=== PATIENT | male | born 1980 | race Hispanic/Latino ===

== ENCOUNTER 2019-03-01 12:28 | Emergency (ER) | payer SELFPAY ==
[2019-03-01 13:31] LABS: Absolute Lymphocytes (CBC) 2.6 K/uL (0.7-4.9); Basophils % 0.6 % (0-1.3); Hematocrit 40.1 % (39.6-49.0); Lymphocytes % 36.1 % (15.3-44.8); RBC Red Blood Cell Count 4.53 M/uL (4.33-5.43)
[2019-03-01 13:47] LABS: ALT/SGPT 42 U/L (12-78); AST/SGOT 14 U/L (15-37); Alkaline Phosphatase 61 U/L (45-117); BUN Blood Urea Nitrogen 14 mg/dL (7-18); Bicarbonate 29 mmol/L (21-32); Bilirubin Direct 0.1 mg/dL (0-0.2); Bilirubin Total 0.4 mg/dL (0.2-1.0); Glucose Level 90 mg/dL (74-106); Magnesium 2.2 mg/dL (1.8-2.4); Potassium 4.1 mmol/L (3.5-5.1); Protein, Total 7.1 g/dL (6.4-8.2); Sodium Level 140 mmol/L (136-145); Troponin (Emerg Dept Use Only) < 0.02 ng/mL (0.0-0.045)
--- NOTE | 2019-03-01 13:55 | RAD REPORT ---
EXAM DESCRIPTION: RAD - Chest Single View - 03/01/2019 1:44 pm CLINICAL HISTORY: CHEST PAIN Chest pain. COMPARISON: <Comparisons> FINDINGS: Portable technique limits examination quality. The lungs are grossly clear. The heart is normal in size. No displaced fractures. IMPRESSION: No acute intrathoracic process suspected.
--- NOTE | 2019-03-01 14:03 | EDPHYS ---
Physician Documentation [facility] Name: Marko Carvalho Age: 38 yrs Sex: Male : 1980 Arrival Date: 03/01/2019 Time: 12:29 Bed 24 Private MD: ALAN Physician Koffi Box HPI: 03/01 13:35 This 38 yrs old Male presents to ER via Ambulatory with complaints of Left Arm pm1 Pain and Anxiety. 13:35 The pain does not radiate. Associated signs and symptoms: Pertinent positives: pm1 dizziness, Anxiety, Pertinent negatives: abdominal pain, cough, shortness of breath, chest pain. 13:35 Duration: The patient or guardian reports a single episode, that is still ongoing, for pm1 3 days. Modifying factors: The symptoms are alleviated by nothing. the symptoms are aggravated by movement. The patient has not experienced similar symptoms in the past. Patient is presenting with left forearm and biceps pain for 3 days with concern that it is left sided arm pain due to heart attack. Patient without any chest pain or shortness of breath. Is anxious about the left arm pain fearing that he has had a heart attack. Historical: - Allergies: 12:44 No Known Allergies; aj1 - Home Meds: 12:44 aspirin 81 mg Oral chew 1 tab once daily [Active]; aj1 - PMHx: 12:44 None; aj1 - PSHx: 12:44 None; aj1 - Immunization history:: Flu vaccine is not up to date. - Social history:: Smoking status: Patient/guardian denies using tobacco. - Ebola Screening: : Patient denies travel to an Ebola-affected area in the 21 days before illness onset. ROS: 13:35 Constitutional: Negative for fever, chills, and weight loss, Eyes: Negative for injury, pm1 pain, redness, and discharge, ENT: Negative for injury, pain, and discharge, Neck: Negative for injury, pain, and swelling. 13:35 Respiratory: Negative for shortness of breath, cough, wheezing, and pleuritic chest pain, Abdomen/GI: Negative for abdominal pain, nausea, vomiting, diarrhea, and constipation, Back: Negative for injury and pain, MS/Extremity: Negative for injury and deformity, Skin: Negative for injury, rash, and discoloration, Neuro: Negative for headache, weakness, numbness, tingling, and seizure. 13:35 Cardiovascular: Positive for chest pain, Negative for edema, orthopnea, palpitations. Exam: 13:35 Constitutional: This is a well developed, well nourished patient who is awake, alert, pm1 and in no acute distress. Head/Face: Normocephalic, atraumatic. Neck: Trachea midline, no thyromegaly or masses palpated, and no cervical lymphadenopathy. Supple, full range of motion without nuchal rigidity, or vertebral point tenderness. No Meningismus. Chest/axilla: Normal chest wall appearance and motion. Nontender with no deformity. No lesions are appreciated. Cardiovascular: Regular rate and rhythm with a normal S1 and S2. No gallops, murmurs, or rubs. Normal PMI, no JVD. No pulse deficits. Respiratory: Lungs have equal breath sounds bilaterally, clear to auscultation and percussion. No rales, rhonchi or wheezes noted. No increased work of breathing, no retractions or nasal flaring. Abdomen/GI: Soft, non-tender, with normal bowel sounds. No distension or tympany. No guarding or rebound. No evidence of tenderness throughout. Back: No spinal tenderness. No costovertebral tenderness. Full range of motion. Skin: Warm, dry with normal turgor. Normal color with no rashes, no lesions, and no evidence of cellulitis. 13:35 Musculoskeletal/extremity: Extremities: grossly normal except: ROM: intact in all extremities, Circulation is intact in all extremities. Sensation intact. tenderness to dorsal aspect of left forearm with palpation. Vital Signs: 12:44 BP 134 / 80; Pulse 63; Resp 18; Temp 96.6; Pulse Ox 100% on R/A; Weight 98.43 kg (R); aj1 Height 5 ft. 10 in. (177.80 cm) (R); Pain 4/10; 14:27 BP 117 / 78; Pulse 62; Resp 18; Temp 98; Pulse Ox 100% on R/A; Pain 0/10; mg2 12:44 Body Mass Index 31.14 (98.43 kg, 177.80 cm) aj1 MDM: 12:53 Patient medically screened. pm1 14:02 Data reviewed: vital signs. Data interpreted: Pulse oximetry: on room air is 100 %. pm1 Interpretation: normal. Counseling: I had a detailed discussion with the patient and/or guardian regarding: the historical points, exam findings, and any diagnostic results supporting the discharge/admit diagnosis, lab results, radiology results, the need for outpatient follow up, to return to the emergency department if symptoms worsen or persist or if there are any questions or concerns that arise at home. 03/01 12:59 Order name: Basic Metabolic Panel; Complete Time: 13:59 pm1 03/01 12:59 Order name: CBC with Diff; Complete Time: 13:35 pm1 03/01 12:59 Order name: LFT's; Complete Time: 13:59 pm1 03/01 12:59 Order name: Magnesium; Complete Time: 13:59 pm1 03/01 12:59 Order name: Troponin (emerg Dept Use Only); Complete Time: 13:59 pm1 03/01 12:59 Order name: XRAY Chest (1 view); Complete Time: 13:59 pm1 03/01 12:59 Order name: EKG; Complete Time: 12:59 pm1 03/01 12:59 Order name: EKG - Nurse/Tech; Complete Time: 13:34 pm1 03/01 12:59 Order name: IV Saline Lock; Complete Time: 13:34 pm1 03/01 12:59 Order name: Labs collected and sent; Complete Time: 13:34 pm1 Administered Medications: No medications were administered Disposition: 03/01/19 14:02 Discharged to Home. Impression: Pain in left arm. - Condition is Stable. - Discharge Instructions: Musculoskeletal Pain. - Prescriptions for Cyclobenzaprine 10 mg Oral Tablet - take 1 tablet by ORAL route every 8 hours As needed; 30 tablet. Diclofenac Sodium 75 mg Oral Tablet Sustained Release - take 1 tablet by ORAL route 2 times per day; 30 tablet. - Medication Reconciliation Form, Thank You Letter, Antibiotic Education, Prescription Opioid Use form. - Follow up: Emergency Department; When: As needed; Reason: Worsening of condition. Follow up: Private Physician; When: 2 - 3 days; Reason: Recheck today's complaints, Continuance of care, Re-evaluation by your physician. - Problem is new. - Symptoms have improved. Addendum: 03/04/2019 07:07 Co-signature as Attending Physician, Koffi Box MD I agree with the assessment and c josue plan of care. Signatures: Dispatcher [employer] EDMargarita Givens RN RN aj1 Koffi Box MD MD cha Marinas, Patrick, MACHINE I ENGRAVER MACHINE I ENGRAVER pm1 Rik Srinivasan, RN RN mg2 Corrections: (The following items were deleted from the chart) 03/01 14:28 14:02 03/01/2019 14:02 Discharged to Home. Impression: Pain in left arm. Condition is mg2 Stable. Forms are Medication Reconciliation Form, Thank You Letter, Antibiotic Education, Prescription Opioid Use. Follow up: Emergency Department; When: As needed; Reason: Worsening of condition. Follow up: Private Physician; When: 2 - 3 days; Reason: Recheck today's complaints, Continuance of care, Re-evaluation by your physician. Problem is new. Symptoms have improved. pm1
--- NOTE | 2019-03-01 14:03 | ER ---
Nurse's Notes [facility] Name: Marko Carvalho Age: 38 yrs Sex: Male : 1980 Arrival Date: 03/01/2019 Time: 12:29 Bed 24 Private MD: Diagnosis: Pain in left arm Presentation: 03/01 12:42 Presenting complaint: Patient states: Left arm pain and shoulder pain for the past 3 aj1 days. States that he has been unable to sleep because he gets a weird feeling in his whole body. Patient also reports shortness of breath. Transition of care: patient was not received from another setting of care. Onset of symptoms was February 2019. Risk Assessment: Do you want to hurt yourself or someone else? Patient reports no desire to harm self or others. Initial Sepsis Screen: Does the patient meet any 2 criteria? No. Patient's initial sepsis screen is negative. Does the patient have a suspected source of infection? No. Patient's initial sepsis screen is negative. Care prior to arrival: None. 12:42 Method Of Arrival: Ambulatory aj1 12:42 Acuity: KATHIE 3 aj1 Triage Assessment: 12:44 General: Appears in no apparent distress. comfortable, Behavior is calm, cooperative, aj1 appropriate for age. Pain: Pain currently is 4 out of 10 on a pain scale. Neuro: Level of Consciousness is awake, alert, obeys commands. Cardiovascular: Patient's skin is warm and dry. Respiratory: Airway is patent Respiratory effort is even, unlabored, Respiratory pattern is regular, symmetrical. Historical: - Allergies: 12:44 No Known Allergies; aj1 - Home Meds: 12:44 aspirin 81 mg Oral chew 1 tab once daily [Active]; aj1 - PMHx: 12:44 None; aj1 - PSHx: 12:44 None; aj1 - Immunization history:: Flu vaccine is not up to date. - Social history:: Smoking status: Patient/guardian denies using tobacco. - Ebola Screening: : Patient denies travel to an Ebola-affected area in the 21 days before illness onset. Screenin:27 Abuse screen: Denies threats or abuse. Denies injuries from another. Nutritional mg2 screening: No deficits noted. Tuberculosis screening: No symptoms or risk factors identified. Fall Risk IV access (20 points). Assessment: 13:41 General: Appears in no apparent distress. comfortable, Behavior is calm, cooperative. mg2 Pain: Complains of pain in left shoulder Pain radiates to left arm Quality of pain is described as aching, Pain began gradually, Is intermittent. Neuro: Level of Consciousness is awake, alert, obeys commands, Oriented to person, place, time, situation. Cardiovascular: Capillary refill < 3 seconds Patient's skin is warm and dry. Respiratory: Airway is patent Respiratory effort is even, unlabored, Respiratory pattern is regular, symmetrical. GI: No signs and/or symptoms were reported involving the gastrointestinal system. : No signs and/or symptoms were reported regarding the genitourinary system. EENT: No signs and/or symptoms were reported regarding the EENT system. Derm: Skin is intact, is healthy with good turgor, Skin is pink, warm \T\ dry. normal. Musculoskeletal: Circulation, motion, and sensation intact. Capillary refill < 3 seconds. 14:20 Reassessment: Patient appears in no apparent distress at this time. mg2 Vital Signs: 12:44 BP 134 / 80; Pulse 63; Resp 18; Temp 96.6; Pulse Ox 100% on R/A; Weight 98.43 kg (R); aj1 Height 5 ft. 10 in. (177.80 cm) (R); Pain 4/10; 14:27 BP 117 / 78; Pulse 62; Resp 18; Temp 98; Pulse Ox 100% on R/A; Pain 0/10; mg2 12:44 Body Mass Index 31.14 (98.43 kg, 177.80 cm) aj1 ED Course: 12:29 Patient arrived in ED. as 12:44 Triage completed. aj1 12:44 Arm band placed on Patient placed in an exam room. aj1 12:53 Calin Weiss NP is PHCP. pm1 12:53 Koffi Box MD is Attending Physician. pm1 13:01 Rik Srinivasan RN is Primary Nurse. mg2 13:27 No provider procedures requiring assistance completed. Inserted saline lock: 20 gauge mg2 in right forearm, using aseptic technique. Blood collected. 13:28 Patient has correct armband on for positive identification. Pulse ox on. NIBP on. Door mg2 closed. Warm blanket given. 13:45 XRAY Chest (1 view) In Process Unspecified. EDMS 14:27 IV discontinued, intact, bleeding controlled, No redness/swelling at site. Pressure mg2 dressing applied. Administered Medications: No medications were administered Outcome: 14:02 Discharge ordered by . pm1 14: Discharged to home ambulatory. mg2 14: Condition: stable 14:27 Discharge instructions given to patient, Instructed on discharge instructions, follow up and referral plans. medication usage, Demonstrated understanding of instructions, follow-up care, medications, Prescriptions given X 2. 14:28 Patient left the ED. mg2 Signatures: Dispatcher [employer] EDMS Margarita Silvestre, RN RN aj1 Ivanna Stahl Patrick, ANA MINE WIRER pm1 Rik Srinivasan RN RN mg2
[2019-03-01 15:59] VITALS: O2SAT 100
[2019-03-01 16:01] VITALS: BP 117/78; TEMP 98
--- NOTE | 2019-03-02 10:05 | EKG ---
Test Date: 2019-03-01 Test Time: 13:18:08 Tobacco Stemmer Machine: MEASUREMENT RESULTS: Intervals: Rate: 53 SC: 158 QRSD: 88 QT: 414 QTc: 388 [place]: P: 30 SC: 158 QRS: 47 T: 23 INTERPRETIVE STATEMENTS: Sinus bradycardia Otherwise normal ECG No previous ECG available for comparison Electronically Signed On 03-02-19 10:04:52 OIL EXPERT by Rohan Coello
== END 2019-03-01 14:28 | disposition home or self-care (01) ==
LOC: ER 12:28
DX: M79.602 Pain in left arm (principal); Z79.82 Long term (current) use of aspirin
CPT/HCPCS: 36415; 71045; 80048; 80076; 83735; 84484; 85025; 93005; 99284